=== PATIENT | female | born 1975 | race Caucasian/White ===

== ENCOUNTER → 2017-09-12 | Outpatient (CLI) | payer BC ==
[2015-03-13 08:21] VITALS: BP 111/72
[~2017-09-12] MED LIST: ACET500T33 PO; CITA20TA5 PO; HYDR200T5 PO; IBUP-1060 PO; PHEN30CA3 PO; PRAM0.25 PO; colon health PO
--- NOTE | 2017-09-12 12:32 | KCIC ---
Left knee, 3 views, 09/12/2017: HISTORY: Knee pain Standing views of the left knee were obtained. No fracture or dislocation is identified. No significant arthritic change is seen. There is a suggestion of a small joint effusion. IMPRESSION: No significant bony abnormality is detected. Electronically signed by: Yifan Lopez MD (09/12/2017 12:28 PM) [id number]
== END | disposition home or self-care (01) ==
LOC: KCIC 11:36
PROVIDERS: ATTEND Physician Assistant Medical
DX: M25.562 Pain in left knee (principal)
CPT/HCPCS: 73562

== ENCOUNTER → 2020-10-05 | Outpatient (CLI) | payer OTHER ==
[2018-09-22 10:30] VITALS: BP 122/76
[~2020-10-05] MED LIST changes: -CITA20TA5 PO; +CITA20TA6 PO; +OXYC1TAB19 PO; +PRAM0.255 PO
--- NOTE | 2020-10-05 13:19 | KCIC ---
CT of the abdomen and pelvis without contrast. 10/05/2020 12:52 PM Indication: Reason: Left flank pain, hx. Lt renal calculus. intermittent pain a few months. / Spl. In structions: / History: Total hx.-uterine CA Comparison Study: None. Technique: Multidetector CT imaging of the abdomen pelvis is obtained without administration of contr ast. Findings: The visualized bilateral lung bases are clear. The liver, spleen, bilateral adrenal glands, gallbladder, and pancreas have a normal noncontrast enh anced appearance. There is a right renal cyst, slightly increased in the interim since comparison rob dy from approximately 3 cm to 3.7 cm in diameter. Cyst appears relatively simple. The bilateral kidne ys are otherwise unremarkable in appearance. Left renal stone is no longer visualized. There is no ev idence of nephrolithiasis or obstructive uropathy. The ureters are normal in course and caliber. The bladder is grossly unremarkable. There is no significant free fluid or free air in the abdomen or pel vis. Hysterectomy noted. There is no evidence of bowel obstruction or significant inflamatory change. The appendix is well visualized and grossly normal. There is no acute osseous abnormality identified . Impression: 1. No evidence of acute intra-abdominal abnormality 2. No evidence of nephrolithiasis or acute obstructive uropathy. Previously seen left renal stone is no longer visualized. CT DOSING PQRS STATEMENT: One or more of the following individualized dose reduction techniques were utilized for this examinat ion: 1. Automated exposure control 2. Adjustment of the mA and/or kV according to patient size 3. Use of iterative reconstruction technique Electronically signed by: Marquez Sheppard MD (10/05/2020 1:17 PM) [id number]
== END ==
LOC: KCIC CT 12:45
PROVIDERS: ATTEND Physician Assistant Medical
DX: N20.0 Calculus of kidney (principal); R10.9 Unspecified abdominal pain
CPT/HCPCS: 74176

== ENCOUNTER → 2021-02-08 | Outpatient (CLI) | payer OTHER ==
[2018-09-22 10:30] VITALS: BP 122/76
--- NOTE | 2021-02-08 16:04 | KCIC ---
EXAM: PA and Lateral Views of the Chest DATE: 02/08/2021 11:15 AM INDICATION: Reason: SOA XS 4 DAYS, NO OTHER SX, RECENT URI / Spl. Instructions: / History: COMPARISON: No Prior FINDINGS: The heart is not enlarged. Mediastinal and hilar contours are normal. No focal parenchymal airspace opacity. 5 mm lung nodule right lower lung. No pleural effusion or pneumothorax. IMPRESSION: 1. No radiographic evidence for acute cardiopulmonary process. 2. 5 mm lung nodule right lower lung can be further assessed by CT if not recently performed. Electronically signed by: Laci Burt MD (02/08/2021 4:02 PM) [id number]
== END ==
LOC: KCIC 10:52
PROVIDERS: ATTEND Physician Assistant Medical
DX: J06.9 Acute upper respiratory infection, unspecified (principal); R91.1 Solitary pulmonary nodule
CPT/HCPCS: 71046

== ENCOUNTER 2022-02-13 14:51 | Emergency (ER) | payer BC, OTHER ==
[~2022-02-13] VITALS: Ht 175.3 cm; Wt 101.7 kg
[~2022-02-13 14:51] MED LIST changes: +PHEN30CA15 PO; -PHEN30CA3 PO
[2022-02-13 14:53] VITALS: BP 129/80
[2022-02-13] MEDS ORDERED: IV NORMAL SALINE 1000ML BAG 1,000 ML IV ONE (16:00)
[2022-02-13 16:12] LABS: BASO # 0.1 x10^3/uL (0.0-0.2); BASO % 1 % (0-3); EOS # 0.2 x10^3/uL (0.0-0.7); EOS % 3 % (0-3); HEMATOCRIT 38.7 % (36.0-47.0); HEMOGLOBIN 13.5 g/dL (12.0-15.5); LYMPH % 50 % (24-48); MEAN CORPUSCULAR HEMOGLOBIN 29 pg (25-35); MEAN CORPUSCULAR HGB CONC 35 g/dL (31-37); MEAN CORPUSCULAR VOLUME 83 fL (79-100); MONO # 0.5 x10^3/uL (0.0-1.1); MONO % 9 % (0-9); NEUT # 2.2 x10^3/uL (1.8-7.7); NEUT % 37 % (31-73); PLATELET COUNT 270 x10^3/uL (140-400); RED BLOOD COUNT 4.65 x10^6/uL (3.50-5.40); RED CELL DISTRIBUTION WIDTH 13.7 % (11.5-14.5)
[2022-02-13 16:23] LABS: BILIRUBIN,URINE NEGATIVE (NEG); CLARITY,URINE CLEAR; COLOR,URINE YELLOW; NITRITE,URINE NEGATIVE (NEG); PROTEIN,URINE NEGATIVE (NEG-TRACE)
[2022-02-13 16:25] LABS: BACTERIA,URINE FEW /HPF (0-FEW); RBC,URINE OCC /HPF (0-2)
[2022-02-13 16:27] LABS: CALCIUM 8.6 mg/dL (8.5-10.1); GFR 59.2; POTASSIUM 3.5 mmol/L (3.5-5.1)
[2022-02-13] MEDS ORDERED: MORPHINE SULFATE 4 MG/ML INJ. IVP ONE (16:30)
[2022-02-13 16:32] LABS: ALBUMIN 3.7 g/dL (3.4-5.0); TOTAL BILIRUBIN 0.5 mg/dL (0.2-1.0); TOTAL PROTEIN 7.4 g/dL (6.4-8.2)
[2022-02-13] MEDS ORDERED: SULF1TAB24 PO (16:48)
--- NOTE | 2022-02-13 16:55 | PHYS DOC ---
Past Medical History Past Medical History: Anxiety Additional Past Medical Histor: lupus, RLS, hx of endometriosis, overactive bladder., UTERINE CANCER Past Surgical History: Hysterectomy, Tubal ligation, Other Additional Past Surgical Histo: Uterine ablation, L foot surgery, R ear surgery, LIGAMENT REPAIR TO LEFT KN Smoking Status: Never Smoker Alcohol Use: None Drug Use: None General Adult EDM: Chief Complaint: URINARY FREQUENCY HPI: HPI: Patient is a 46 year old female who presents with left flank pain for 1 day. Patient states that she was started on Levaquin about 5 days ago for left-sided urinary tract infection. Patient had CT scan 1 week ago which showed 2 ureters on the left side. Patient reports no pyelonephritis on the left that was obvious on CT scan. She has an appoint with the urologist on Friday. Patient states that she has no dysuria but she does feel like she has frequency. Patient is afebrile and has no other symptoms. Review of Systems: Review of Systems: Constitutional: Denies fever or chills. [] Eyes: Denies change in visual acuity. [] HENT: Denies nasal congestion or sore throat. [] Respiratory: Denies cough or shortness of breath. [] Cardiovascular: Denies chest pain or edema. [] GI: Denies abdominal pain, nausea, vomiting, bloody stools or diarrhea. [] : Denies dysuria. [] Musculoskeletal: Positive left flank pain, negative joint pain. [] Integument: Denies rash. [] Neurologic: Denies headache, focal weakness or sensory changes. [] Endocrine: Denies polyuria or polydipsia. [] Lymphatic: Denies swollen glands. [] Psychiatric: Denies depression or anxiety. [] Heart Score: C/O Chest Pain: No Risk Factors: Risk Factors: DM, Current or recent (<one month) smoker, HTN, HLP, family history of CAD, obesity. Risk Scores: Score 0 - 3: 2.5% MACE over next 6 weeks - Discharge Home Score 4 - 6: 20.3% MACE over next 6 weeks - Admit for Clinical Observation Score 7 - 10: 72.7% MACE over next 6 weeks - Early Invasive Strategies Current Medications: Current Medications Medications (Trade) Dose Ordered Sig/Crissy Start Time Stop Time Status Last Admin Dose Admin Ceftriaxone Sodium (Rocephin) 1 gm 1X ONCE 02/13/22 17:00 02/13/22 17:01 UNV Morphine Sulfate (Morphine Sulfate) 4 mg 1X ONCE 02/13/22 16:30 02/13/22 16:31 DC 02/13/22 16:41 4 MG Sodium Chloride 1,000 ml @ 0 mls/hr 1X ONCE 02/13/22 16:00 02/13/22 16:01 DC 02/13/22 16:00 1,000 MLS/HR Allergies: Allergies: Allergies Coded Allergies Type Severity Reaction Last Updated Verified meloxicam Adverse Reaction Intermediate Nausea and Vomiting 09/21/18 Yes Physical Exam: PE: Constitutional: Well developed, well nourished, no acute distress, non-toxic appearance. [] HENT: Normocephalic, atraumatic, bilateral external ears normal, oropharynx moist, no oral exudates, nose normal. [] Eyes: PERRLA, EOMI, conjunctiva normal, no discharge. [] Neck: Normal range of motion, no tenderness, supple, no stridor. [] Cardiovascular:Heart rate regular rhythm, no murmur [] Lungs & Thorax: Bilateral breath sounds clear to auscultation [] Abdomen: Bowel sounds normal, soft, no tenderness, no masses, no pulsatile ma sses. [] Skin: Warm, dry, no erythema, no rash. [] Back: No tenderness, no CVA tenderness. [] Extremities: No tenderness, no cyanosis, no clubbing, ROM intact, no edema. [] Neurologic: Alert and oriented X 3, normal motor function, normal sensory function, no focal deficits noted. [] Psychologic: Affect normal, judgement normal, mood normal. [] Current Patient Data: Labs: Laboratory Tests Test 02/13/22 15:00 02/13/22 15:27 Urine Collection Type Unknown Urine Color Yellow Urine Clarity Clear Urine pH 6.0 Urine Specific [place] 1.025 Urine Protein Negative mg/dL (NEG-TRACE) Urine Glucose (UA) Negative mg/dL (NEG) Urine Ketones (Stick) Negative mg/dL (NEG) Urine Blood Negative (NEG) Urine Nitrite Negative (NEG) Urine Bilirubin Negative (NEG) Urine Urobilinogen Dipstick 1.0 mg/dL (0.2 mg/dL) Urine Leukocyte Esterase Negative (NEG) Urine RBC Occ /HPF (0-2) Urine WBC 1-4 /HPF (0-4) Urine Squamous Epithelial Cells Many /LPF Urine Bacteria Few /HPF (0-FEW) Urine Mucus Slight /LPF White Blood Count 6.0 x10^3/uL (4.0-11.0) Red Blood Count 4.65 x10^6/uL (3.50-5.40) Hemoglobin 13.5 g/dL (12.0-15.5) Hematocrit 38.7 % (36.0-47.0) Mean Corpuscular Volume 83 fL (79-100) Mean Corpuscular Hemoglobin 29 pg (25-35) Mean Corpuscular Hemoglobin Concent 35 g/dL (31-37) Red Cell Distribution Width 13.7 % (11.5-14.5) Platelet Count 270 x10^3/uL (140-400) Neutrophils (%) (Auto) 37 % (31-73) Lymphocytes (%) (Auto) 50 % (24-48) H Monocytes (%) (Auto) 9 % (0-9) Eosinophils (%) (Auto) 3 % (0-3) Basophils (%) (Auto) 1 % (0-3) Neutrophils # (Auto) 2.2 x10^3/uL (1.8-7.7) Lymphocytes # (Auto) 3.0 x10^3/uL (1.0-4.8) Monocytes # (Auto) 0.5 x10^3/uL (0.0-1.1) Eosinophils # (Auto) 0.2 x10^3/uL (0.0-0.7) Basophils # (Auto) 0.1 x10^3/uL (0.0-0.2) Sodium Level 144 mmol/L (136-145) Potassium Level 3.5 mmol/L (3.5-5.1) Chloride Level 108 mmol/L (98-107) H Carbon Dioxide Level 24 mmol/L (21-32) Anion Gap 12 (6-14) Blood Urea Nitrogen 17 mg/dL (7-20) Creatinine 1.0 mg/dL (0.6-1.0) Estimated GFR (Cockcroft-Gault) 59.2 BUN/Creatinine Ratio 17 (6-20) Glucose Level 115 mg/dL (70-99) H Calcium Level 8.6 mg/dL (8.5-10.1) Total Bilirubin 0.5 mg/dL (0.2-1.0) Aspartate Amino Transferase (AST) 18 U/L (15-37) Alanine Aminotransferase (ALT) 21 U/L (14-59) Alkaline Phosphatase 109 U/L (46-116) Total Protein 7.4 g/dL (6.4-8.2) Albumin 3.7 g/dL (3.4-5.0) Albumin/Globulin Ratio 1.0 (1.0-1.7) Laboratory Tests 02/13/22 15:27 Laboratory Tests 02/13/22 15:27 Vital Signs: Vital Signs Date Time Temp Pulse Resp B/P (MAP) Pulse Ox O2 Delivery O2 Flow Rate FiO2 02/13/22 14:53 97.6 86 20 129/80 (96) 97 Room Air 97.6 EKG: EKG: [] Radiology/Procedures: Radiology/Procedures: [] Impression: Left-sided musculoskeletal pain Course & Med Decision Making: Course & Med Decision Making Pertinent Labs and Imaging studies reviewed. (See chart for details) 46-year-old female seen and evaluated by myself, patient reports left flank pain from the low back to upper back. Labs drawn as well as urine sent to lab. Serum studies did not show systemic signs of inflammation. Urinalysis did not show any signs of urinary tract infection, although patient has been taking Levaquin. Patient reportedly stopped taking Levaquin today and was sent in by her primary care physician to be evaluated. Patient states that pushing on her left flank has improved her pain. She has been getting massages which has improved her pain as well. Signs and symptoms do not seem consistent with pyelonephritis, however I will give her a dose of Rocephin as well as a prescription for Bactrim and encouraged her to follow-up with her urologist in several days in the chance that it may be an occult urinary tract infection with flank pain. This is likely musculoskeletal pain however patient has a follow- up with urologist and patient is nontoxic-appearing. Patient is hemodynamically stable. Patient should follow-up with urologist. Patient understood plan of action and is comfortable with discharge. ER precautions given to patient Em Disclaimer: Em Disclaimer: This electronic medical record was generated, in whole or in part, using a voice recognition dictation system. Departure Departure Impression: Primary Impression: Musculoskeletal back pain Disposition: HOME / SELF CARE / HOMELESS Condition: GOOD Patient Instructions: Back Pain, Adult, [id number] Additional Instructions: Follow-up with your urologist on Friday Finish all of the new antibiotic that I have prescribed for you You may take [id number] anti-inflammatories or Tylenol for pain control Scripts Sulfamethoxazole/Trimethoprim (BACTRIM DS TABLET) 1 Each Tablet 1 TAB PO BID, #14 TAB Prov: AMANDA PERRY MD 02/13/22 AMANDA PERRY MD February 13, 2022 16:55
[2022-02-13] MEDS ORDERED: cefTRIAXone IV Push 1 GM VIAL. IVP ONE (17:00)
== END 2022-02-13 17:28 | disposition home or self-care (01) ==
LOC: ER 14:51
DX: M54.50 Low back pain, unspecified (principal); M54.6 Pain in thoracic spine; R10.9 Unspecified abdominal pain; G25.81 Restless legs syndrome; Z90.710 Acquired absence of both cervix and uterus; Z98.51 Tubal ligation status
CPT/HCPCS: 36415; 80053; 81001; 85025; 96374; 96375; 99284; J0696; J2270; J7030; 96361